=== PATIENT | male | born 1945 | race Caucasian/White ===

== ENCOUNTER 2020-05-20 10:37 | Day surgery (SDC) | payer MEDICARE, MEDICAID, SELFPAY ==
--- NOTE | 2020-05-16 14:24 | HO.ANESPROP2 ---
Documented by User: Rosanne Menard 05/19/20 11:28 HPI - Anesthesia Eval Consult details Narrative: 75yo M for EGD [facility] Past Medical History Medical History (Updated 05/19/20 @ 11:22 by Rosanne Menard) Bladder cancer Carpal tunnel syndrome Diabetes High cholesterol Hypertension Prostate cancer Surgical History Surgical History (Updated 05/19/20 @ 11:22 by Rosanne Menard) History of carpal tunnel release Social History Social History (Updated 05/19/20 @ 11:28 by Rosanne Menard) Smoking Status: Current every day smoker Packs Per Day: 1 Cigarettes Per Day: 20.0 Use of substances other than those prescribed or required for medical reasons: No Advance Directives: No Advance Directives Information Provided: Yes Recently lost weight without trying: No Meds Allergies Allergy/AdvReac Type Severity Reaction Status Date / Time Penicillins Allergy Unknown unknown Verified 05/19/20 11:26 Home Medications Medication Instructions Recorded Confirmed Type Centrum Silver 05/19/20 History aspirin 05/19/20 History atenolol 05/19/20 History atorvastatin 05/19/20 History finasteride 05/19/20 History ibuprofen 05/19/20 History losartan 05/19/20 History metformin 05/19/20 History Exam Exam Date and Time: May 16, 2020 1424 Pertinent Lab Results Pertinent Lab Results: Laboratory Tests 03/16/20 03/16/20 03/16/20 15:49 15:49 15:56 WBC 6.5 Hgb 13.2 L Hct 41.3 L Plt Count 200 Sodium 137 Potassium 4.6 Chloride 101 Bicarbonate 28 Anion Gap 13 BUN 20 H Creatinine 1.42 H Est GFR (Non-Af Amer) 49 Coronavirus (PCR) NOT DETECTED Assessment and Plan Assessment Anesthesia Assessment: Chart Reviewed Documented by User: Aga Anglin 05/20/20 11:23 [facility] Past Medical History Medical History (Updated 05/19/20 @ 11:22 by Rosanne Menard) Bladder cancer Carpal tunnel syndrome Diabetes High cholesterol Hypertension Prostate cancer Family History Family history of problems with anesthesia: No Surgical History Surgical History (Updated 05/19/20 @ 11:22 by Rosanne Menard) History of carpal tunnel release History of Problems with Anesthesia: No Social History Social History (Updated 05/19/20 @ 11:28 by Rosanne Menard) Smoking Status: Current every day smoker Packs Per Day: 1 Cigarettes Per Day: 20.0 Use of substances other than those prescribed or required for medical reasons: No Advance Directives: No Advance Directives Information Provided: Yes Recently lost weight without trying: No Meds Allergies Allergy/AdvReac Type Severity Reaction Status Date / Time Penicillins Allergy Unknown unknown Verified 05/19/20 11:26 Home Medications Medication Instructions Recorded Confirmed Type Centrum Silver 05/19/20 History aspirin 05/19/20 History atenolol 05/19/20 History atorvastatin 05/19/20 History finasteride 05/19/20 History ibuprofen 05/19/20 History losartan 05/19/20 History metformin 05/19/20 History Exam Height,Weight and Vital Signs: POC 99mg/dL Vital Signs Temp Pulse Resp BP Pulse Ox 05/20/20 10:53 97 F 65 18 158/76 H 98 Airway Mallampati Class: II TM Dist: >3cm Neck ROM: Full Partial: Upper Loose/Missing/Broken Teeth: No Heart: RR Lungs: CTAB Assessment and Plan Assessment Anesthesia Assessment: Anesthesia Plan Discussed, Consent Obtained and Chart Reviewed Final Anesthetic Review NPO: Yes ASA Class: II Final Preanesthetic Review: No Changes in Pt Med Stat, Consent Obtained/Reviewed, Med/Surg/Anes Hx Reviewed and Anes Risks/Benef Reviewed Patient Risk: Intermediate Procedure Risk: Low Anesthetic Plan Anesthetic Plan: MAC: Disposition: Standard PACU
[2020-05-20] VITALS (7 sets, daily range): BP systolic 99–158; BP diastolic 51–78; PULSE 63–68; RESP 12–21; TEMP 36.1–36.3; O2SAT 92–98; BMI 27.6
--- NOTE | 2020-05-20 | ECG_ITS ---
Test Reason : PREOP, PAC'S Blood Pressure : / mmHG Vent. Rate : 060 BPM Atrial Rate : 060 BPM P-R Int : 180 ms QRS Dur : 090 ms QT Int : 410 ms P-R-T Axes : 047 044 006 degrees QTc Int : 410 ms Sinus bradycardia with Premature atrial complexes Nonspecific T wave abnormality Inferior leads Abnormal ECG No previous ECGs available Referred By: Aga Anglin Electronically Signed By:CORBY GRESHAM MD
[2020-05-20] MEDS: Lactated Ringers 1,000 ML 100 ML IVCONT (11:10)
[2020-05-20 11:16] LABS: Glucose, Whole Blood 99 mg/dL (60-115)
--- NOTE | 2020-05-20 11:25 | MHC.SHP ---
Pre-Procedural Eval Section A The patient is an INPATIENT: Yes Changes since office visit: No Cold of Flu in the past 2 weeks, No New Medical Problems, No Changes in Medication and No Patient answered all questions The History & Physical has been completed within 30 days and I have reviewed it.: Yes Section B Chief Complaint: Dysphagia Allergies: Allergies Allergy/AdvReac Type Severity Reaction Status Date / Time Penicillins Allergy Unknown unknown Verified 05/19/20 11:26 Plan Patient has been examined and remains a candidate for the planned procedure
--- NOTE | 2020-05-20 12:07 | PM.OP ---
Brief Operative Note Date of procedure: 05/20/20 Pre-op diagnosis: dysphagia Post-op diagnosis: same Procedure: egd biopsy and balloon dilation Surgeon: Dilip Pickard Anesthesia: MAC Estimated blood loss (mL): 0 Pathology: none sent (antral biopsies, egj biopsies) Disposition: PACU
[2020-05-20] MEDS: Albuterol Sulfate (0.083%) 2.5 MG/3 ML VIAL.NEB INHALE (13:17)
--- NOTE | 2020-05-20 15:31 | OP_ITS ---
SURGEON: Dilip Pickard MD INDICATIONS: Dysphagia. PREOPERATIVE DIAGNOSIS: POSTOPERATIVE DIAGNOSIS: PROCEDURE PERFORMED: Upper endoscopy with balloon dilation and biopsy. ESTIMATED BLOOD LOSS: COMPLICATIONS: ANESTHESIA: ASSISTANTS: SPECIMENS: MEDICATIONS: Monitored anesthesia care. DESCRIPTION OF PROCEDURE: History and physical performed. The risks and benefits of the procedure were explained to the patient. Informed consent was obtained. The patient was placed in left lateral decubitus position. The Olympus video gastroscope was introduced into the esophagus, stomach, and duodenum. Examination was performed and the scope was removed. He tolerated the procedure well and was taken to recovery area in stable condition. FINDINGS: Esophagus: The esophagus had a sigmoid appearance to it and EG junction seemed subjectively not relax as normal, raising the question of achalasia. There was no esophagitis. Stomach: The stomach showed linear streaks of erythema consistent with gastritis. Biopsies were obtained from the antrum. Duodenum: The bulb and second portion were normal. Balloon dilation of the EG junction to 20mm was performed with a through the scope, balloon inflated to its recommended pressure for 60 seconds and then removed. Following this, biopsies were obtained from the EG junction. IMPRESSION: 1. Dysphagia. 2. Gastritis. RECOMMENDATION: Follow up the biopsy results. MD JUNE Chandler/PRO / [id number] MTDD
== END 2020-05-20 14:16 | disposition home or self-care (01) ==
PROVIDERS: Visit Provider Internal Medicine Gastroenterology
PROC: 0DJ08ZZ Inspection of Upper Intestinal Tract, Via Natural or Artificial Opening Endoscopic (ICD-10-PCS; CPT 43235; principal; 2020-05-20 11:40)
DX: R13.10 Dysphagia, unspecified (principal); K29.50 Unspecified chronic gastritis without bleeding; I10 Essential (primary) hypertension; E11.9 Type 2 diabetes mellitus without complications; E78.00 Pure hypercholesterolemia, unspecified; Z79.84 Long term (current) use of oral hypoglycemic drugs; Z79.82 Long term (current) use of aspirin; Z79.899 Other long term (current) drug therapy; Z85.46 Personal history of malignant neoplasm of prostate; Z85.51 Personal history of malignant neoplasm of bladder; Z92.3 Personal history of irradiation; F17.210 Nicotine dependence, cigarettes, uncomplicated; Z88.0 Allergy status to penicillin
CPT/HCPCS: 43249; 43239; 82947; 88305; 88342; 93005; 94640; C1726

== ENCOUNTER 2020-06-03 09:26 | Outpatient (REF) | payer MEDICARE, MEDICAID, SELFPAY ==
--- NOTE | 2020-06-03 09:33 | FL_ITS ---
PROCEDURE: FL BARIUM SWALLOW CLINICAL INFORMATION: Dysphagia. COMPARISON: None TECHNIQUE: Barium swallow was performed in upright view with thin, thick barium and barium-coated turkey. FINDINGS: Following oral administration of thick, thin barium and barium-coated turkey there is slow propagation of bolus from the oral cavity through the pharynx and esophagus. There is peristalsis seen in the mid and distal esophagus consistent with presbyesophagus. There is inconsistent opening of the GE junction resulting in large column of retained fluid and thick barium within the mid and distal esophagus. This persisted throughout the exam. Patient was not placed in lying position because of significant food residue in the esophagus. FL/FL barium swallow IMPRESSION: Inconsistent opening of GE junction likely narrowing or neuromuscular dysfunction. There is tertiary peristalsis seen throughout the mid and distal esophagus likely presbyesophagus. However, there is no laryngeal penetration or aspiration seen. No retention in the valleculae or piriform sinuses. Recommend endoscopy of GE junction for further evaluation. Fluoroscopy time: 2.6 minutes. Dose area product: 91.321 mGy
== END 2020-06-03 09:27 | disposition home or self-care (01) ==
LOC: HO.XRAY 09:26
PROVIDERS: PCP Internal Medicine; Visit Provider Internal Medicine Gastroenterology
DX: R13.10 Dysphagia, unspecified (principal); E78.00 Pure hypercholesterolemia, unspecified; I10 Essential (primary) hypertension; C67.9 Malignant neoplasm of bladder, unspecified; C79.82 Secondary malignant neoplasm of genital organs
CPT/HCPCS: 74220